=== PATIENT | male | born 1975 | race Caucasian/White ===

== ENCOUNTER 2018-06-13 19:11 | Emergency (ER) | payer SELFPAY ==
[2018-06-13] MEDS ORDERED: Bacitracin Oint 1 GM U/D Packet TOP ONE (19:48)
--- NOTE | 2018-06-13 19:49 | EDM.PDOC ---
ED HPI GENERAL MEDICAL PROBLEM - General Chief Complaint: Upper Extremity Injury/Pain Stated Complaint: HURT ARM Time Seen by Provider: 06/13/18 19:48 Source of Information: Reports: Patient History Limitations: Reports: No Limitations - History of Present Illness INITIAL COMMENTS - FREE TEXT/NARRATIVE: pt arrived with pain and swelling in his rt forearm. pt had a spring come up and hit his rt forearm. Onset: Today Duration: Hour(s): Location: Reports: Upper Extremity, Right Associated Symptoms: Reports: No Other Symptoms - Related Data Allergies Allergy/AdvReac Type Severity Reaction Status Date / Time No Known Allergies Allergy Verified 06/13/18 19:32 Home Meds: Home Meds Lisinopril [Prinivil] 1 tab PO DAILY 01/25/14 [History] Ibuprofen 400 mg PO ASDIRECTED PRN 01/27/14 [History] Past Medical History Cardiovascular History: Reports: Hypertension Social & Family History - Tobacco Use Smoking Status *Q: Current Every Day Smoker Years of Tobacco use: 20 Packs/Tins Daily: 0.5 Review of Systems - Review of Systems Review Of Systems: See Below Constitutional: Reports: No Symptoms Eyes: Reports: No Symptoms Ears: Reports: No Symptoms Nose: Reports: No Symptoms Mouth/Throat: Reports: No Symptoms Respiratory: Reports: No Symptoms Cardiovascular: Reports: No Symptoms GI/Abdominal: Reports: No Symptoms Musculoskeletal: Denies: Other (Pain in the rt forearm.He was hit with a large spring and the forearm developed swelling immediately. ) Skin: Reports: No Symptoms Neurological: Reports: No Symptoms Psychiatric: Reports: No Symptoms ED EXAM, GENERAL - Physical Exam Exam: See Below Free Text/Narrative:: pt hit his rt forearm with a large sping and he has a abrasion at the wrist level. and he developed marked swelling immediately. Exam Limited By: No Limitations General Appearance: Alert, Anxious, Mild Distress Extremities: Other (pain in the rt forearm with swelling. He has a superficial abrasion. ) Neurological: Alert, Oriented, Normal Cognition Course - Vital Signs Last Recorded V/S: Last Vital Signs Temp 36.8 C 06/13/18 19:38 Pulse 89 06/13/18 19:38 Resp 14 06/13/18 19:38 BP 170/99 H 06/13/18 19:38 Pulse Ox 95 06/13/18 19:38 - Orders/Labs/Meds Orders: Active Orders 24 hr Category Date Time Status Vaccines to be Administered [RC] PER UNIT ROUTINE Care 06/13/18 20:03 Active Forearm 2V Rt [CR] Stat Exams 06/13/18 19:47 Taken Meds: Medications Discontinued Medications Generic Name Dose Route Start Last Admin Trade Name Shruti PRN Reason Stop Dose Admin Bacitracin 1 dose 06/13/18 19:48 06/13/18 20:16 Bacitracin Oint 1 Gm TOP 06/13/18 19:49 1 dose ONETIME ONE Administration Diphtheria/Tetanus/Acell Pertussis 0.5 ml 06/13/18 20:03 06/13/18 20:16 Adacel IM 06/13/18 20:04 0.5 ml .ONCE ONE Administration Departure - Departure Time of Disposition: 20:20 Disposition: Home, Self-Care 01 Condition: Fair Clinical Impression: Abrasion forearm, Contusion, forearm - Discharge Information Referrals: Laura Nicolas PA [Primary Care Provider] - Forms: ED Department Discharge Care Plan Goals: rtc if problems, may rturn to work tomorrow, elevate and cool pack area. tylenol and motrin for pain. - My Orders Last 24 Hours: My Active Orders 06/13/18 19:47 Forearm 2V Rt [CR] Stat 06/13/18 20:03 Vaccines to be Administered [RC] PER UNIT ROUTINE - Assessment/Plan Last 24 Hours: My Active Orders 06/13/18 19:47 Forearm 2V Rt [CR] Stat 06/13/18 20:03 Vaccines to be Administered [RC] PER UNIT ROUTINE
[2018-06-13] MEDS ORDERED: Diphtheria,Pertussis(Acell),Tetanus Vaccine 0.5 ML SDV IM ONE (20:03)
--- NOTE | 2018-06-15 08:55 | CR ---
Forearm 2V Rt CLINICAL HISTORY: Trauma FINDINGS: There is no fracture or osseous lesion. IMPRESSION: Negative
== END 2018-06-13 20:37 | disposition home or self-care (01) ==
LOC: JP.ED 19:11
DX: S50.11XA Contusion of right forearm, initial encounter (principal); I10 Essential (primary) hypertension; F17.210 Nicotine dependence, cigarettes, uncomplicated; Z23 Encounter for immunization; Z79.899 Other long term (current) drug therapy; W22.8XXA Striking against or struck by other objects, initial encounter
CPT/HCPCS: 73090-26-RT; 73090-RT; 90471; 90715; 99001; 99283; 99284-25

== ENCOUNTER 2019-06-24 20:30 | Emergency (ER) | payer BC ==
[2019-06-24] MEDS ORDERED: Acetaminophen/HYDROcodone 325-5 MG Tab PO ONE (21:55)
--- NOTE | 2019-06-24 22:00 | EDM.PDOC ---
ED HPI GENERAL MEDICAL PROBLEM - General Chief Complaint: Back Pain or Injury Stated Complaint: LOW BACK PAIN Time Seen by Provider: 06/24/19 21:45 Source of Information: Reports: Patient, RN History Limitations: Reports: No Limitations - History of Present Illness INITIAL COMMENTS - FREE TEXT/NARRATIVE: 44 yo male presents with progressive low back pain over the past several days. Says he has some mild chronic low back pain, but it is worse now due to his work load. 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 Does not recall any acute injury. He has tried rn urgent care, warm baths, and Aleve without relief. No pain down his legs or bowel or bladder dysfunction. Has not been to his primary yet. Says his busy season will be over in another week and then he gets a break. Does not want a note for work. Pain is evenly spread across his low back at the belt line. Says he's been to PT in the past and it didn't help. Onset: Gradual Duration: Day(s):, Getting Worse Location: Reports: Back (low) Quality: Reports: Ache Severity: Moderate Improves with: Reports: Rest Worsens with: Reports: Movement (bending, lifting) Context: Reports: Other (see HPI) Associated Symptoms: Reports: No Other Symptoms Treatments [employer]: Reports: NSAIDS (Aleve last 3 hrs ago.) Lower Mid-Posterior Back Pain Score (Numeric/FACES): 7 - Related Data Allergies Allergy/AdvReac Type Severity Reaction Status Date / Time No Known Allergies Allergy Verified 06/13/18 19:32 Home Meds: Home Meds Lisinopril [Prinivil] 10 mg PO DAILY 01/25/14 [History] Guaifenesin/Pseudoephedrne HCl [Mucus D ER 600-60 mg Tablet] 1 tab PO BID [History] Levofloxacin 500 mg PO DAILY 06/24/19 [History] Naproxen [Naprosyn] 250 mg PO BID 06/24/19 [History] Pantoprazole Sodium 40 mg PO DAILY 06/24/19 [History] Past Medical History HEENT History: Reports: Other (See Below) Other HEENT History: dentures Cardiovascular History: Reports: Hypertension Gastrointestinal History: Reports: Other (See Below) Other Gastrointestinal History: acid reflux Musculoskeletal History: Reports: Back Pain, Chronic, Fracture - Infectious Disease History Infectious Disease History: Reports: Chicken Pox - Past Surgical History HEENT Surgical History: Reports: Oral Surgery Social & Family History - Tobacco Use Smoking Status *Q: Light Tobacco Smoker Years of Tobacco use: 20 Packs/Tins Daily: 0.2 - Caffeine Use Caffeine Use: Reports: Soda - Recreational Drug Use Recreational Drug Use: No ED ROS GENERAL - Review of Systems Review Of Systems: See Below Constitutional: Reports: No Symptoms HEENT: Reports: No Symptoms Respiratory: Reports: No Symptoms Cardiovascular: Reports: No Symptoms GI/Abdominal: Reports: No Symptoms : Reports: No Symptoms Musculoskeletal: Reports: Back Pain Skin: Reports: No Symptoms Neurological: Reports: No Symptoms ED EXAM,LOWER BACK PAIN/INJURY - Physical Exam Exam: See Below Exam Limited By: No Limitations General Appearance: Alert, WD/WN, No Apparent Distress Eye Exam: Bilateral Eye: Normal Inspection Ears: Normal External Exam, Normal Canal, Hearing Grossly Normal Nose: Normal Inspection, No Blood Throat/Mouth: Normal Inspection, Normal Lips, Normal Voice, No Airway Compromise Head: Atraumatic, Normocephalic Neck: Normal Inspection Respiratory/Chest: No Respiratory Distress, No Accessory Muscle Use Cardiovascular: Regular Rate, Rhythm, No Edema Back Exam: Normal Inspection, Other (sacral tenderness and extreme low lumbar tenderness bilaterally. Coughing does not make it worse. ). No: CVA Tenderness (R), CVA Tenderness (L) Extremities: Normal Inspection, Normal Range of Motion, Non-Tender, No Pedal Edema Neurological: Alert, Normal Mood/Affect, CN II-XII Intact, No Motor/Sensory Deficits, Oriented x 3 DTR - Lower Extremities: 1+: Knee (R), Knee (L) Psychiatric: Normal Affect, Normal Mood Skin Exam: Warm, Dry, Intact, Normal Color, No Rash Course - Vital Signs Last Recorded V/S: Last Vital Signs Temp 36.4 C 06/24/19 21:20 Pulse 97 06/24/19 21:20 Resp 16 06/24/19 21:20 BP 128/86 06/24/19 21:20 Pulse Ox 98 06/24/19 21:20 - Orders/Labs/Meds Orders: Active Orders 24 hr Category Date Time Status Acetaminophen/HYDROcodone [[place] 325-5 MG] Med 06/24/19 21:55 Once 1 tab PO ONETIME ONE Departure - Departure Time of Disposition: 22:10 Disposition: Home, Self-Care 01 Condition: Fair Clinical Impression: Acute exacerbation of chronic low back pain - Discharge Information *PRESCRIPTION DRUG MONITORING PROGRAM REVIEWED*: No *COPY OF PRESCRIPTION DRUG MONITORING REPORT IN PATIENT KASSI: No Instructions: Chronic Back Pain, [id number], Back Exercises, [id number] Referrals: Isac Toth MD [Primary Care Provider] - Additional Instructions: Take Flexeril 5 mg every 8 hrs when you need to be alert, and 10 mg at bedtime. Use [place] as directed when you are not at work, use acetaminophen 1000 mg every 6 hrs when at work. You may continue your Aleve up to 2 every 8 hrs. Consider a back brace to be used with lifting or bending. F/U with your provider in the clinic as needed. - My Orders Last 24 Hours: My Active Orders 06/24/19 21:55 Acetaminophen/HYDROcodone [[place] 325-5 MG] 1 tab PO ONETIME ONE - Assessment/Plan Last 24 Hours: My Active Orders 06/24/19 21:55 Acetaminophen/HYDROcodone [[place] 325-5 MG] 1 tab PO ONETIME ONE
== END 2019-06-24 22:15 | disposition home or self-care (01) ==
LOC: JP.ED 20:30
DX: G89.29 Other chronic pain (principal); M54.5 Low back pain; I10 Essential (primary) hypertension; K21.9 Gastro-esophageal reflux disease without esophagitis; F17.210 Nicotine dependence, cigarettes, uncomplicated; Z79.899 Other long term (current) drug therapy
CPT/HCPCS: 99283; A9270-GY

== ENCOUNTER 2019-07-19 06:33 | Day surgery (SDC) | payer BC, OTHER ==
[2019-07-19] MEDS ORDERED: Glycopyrrolate 0.2 MG/ML 2 ML SDV IVPUSH ONE (07:00)
[2019-07-19] MEDS ORDERED: Dextrose 5%-Lactated Ringers 1,000 ML IV SCH (07:00)
[2019-07-19] MEDS ORDERED: Midazolam 1 MG/ML 2 ML SDV ONE (07:26)
[2019-07-19] MEDS ORDERED: Propofol 200 MG/20 ML SDV ONE (07:26)
[2019-07-19] MEDS ORDERED: fentaNYL 100 MCG/2 ML SDV ONE (07:26)
--- NOTE | 2019-07-30 10:50 | OR ---
DATE OF PROCEDURE: 07/19/2019 SURGEON: Fredrick Mobley MD PREOPERATIVE DIAGNOSIS: Upper abdominal pain. POSTOPERATIVE DIAGNOSES: Upper abdominal pain associated with: 1. Small hiatal hernia and active gastroesophageal reflux disease. 2. Moderate gastric bezoar with a large volume of retained gastric bile. 3. Moderate antral gastritis. OPERATIVE PROCEDURE: Esophagogastroduodenoscopy with: 1. Evacuation of gastric bezoar. 2. Biopsies of antrum for CLOtest. 3. Biopsies of esophagogastric junction for histologic evaluation. ANESTHESIA: IV sedation. INDICATION FOR PROCEDURE: This is a 44-year-old male presenting with ongoing upper abdominal discomfort. The patient is presently on a proton pump inhibitor and, despite this, is having some ongoing heartburn as well as epigastric discomfort. Plan is to proceed with upper GI endoscopy with biopsies and/or dilation as indicated. Potential risks including bleeding and perforation were discussed, and the patient wishes to proceed. DETAILS OF PROCEDURE: The patient was taken to the operating room and placed in the left lateral decubitus position. IV sedation was administered, after which the upper GI endoscope was passed orally through the length of the esophagus, into the stomach with retroflexion view of the fundus, and thereafter through the pyloric channel into the junction of the third and fourth portions of the duodenum. Findings included some mild redness of the hypopharynx and larynx. The upper esophageal sphincter and esophageal body were unremarkable. At the EG junction, the patient was noted to have a small hiatal hernia, but quite active gastroesophageal reflux disease. There was no stricturing or gross evidence of neoplasia. Within the stomach, there was a large amount of retained bilious material and somewhat smaller volume of bezoar containing some old undigested food which appeared predominantly vegetable in nature. This was associated with some redness in the antrum. The pyloric channel and portions of the duodenum examined were unremarkable. At this point, biopsies were taken from the esophagogastric junction and sent for histologic evaluation. Biopsies were taken from the antrum and sent for CLOtest. Minimal bleeding at the biopsy sites was seen. The fluid was then evacuated from the stomach as much as possible and the bezoar was then manipulated gradually through the pylorus, removing virtually all of the bezoar-type material. The patient was taken to the recovery room in satisfactory condition. The patient will be started on Zithromax 125 mg a day to try to augment gastric emptying. Continue on the proton pump inhibitor. The patient is also noted to have new onset of a right bundle-branch block, which may be indicative of some underlying coronary artery disease and will be set up to see Lo Todd PA-C, for followup of that. He was also noted to have quite severe sleep apnea with some sedation, and he and his were instructed they quite urgently need to get his CPAP machine working. Apparently there are some broken parts at this point that need to be replaced. We will see the patient back on 08/11/19 for followup. If the patient continues to have significant upper GI symptomatology, he may be a candidate for a partial gastrectomy, Alejandro-en-Y gastric bypass- type procedure, given his BMI of 37 with ongoing sleep apnea and the poor gastric emptying. Fredrick Mobley MD /[id number]
== END 2019-07-19 09:45 | disposition home or self-care (01) ==
LOC: JP.SDS 06:33
PROVIDERS: ATTEND Surgery
DX: K21.9 Gastro-esophageal reflux disease without esophagitis (principal); K44.9 Diaphragmatic hernia without obstruction or gangrene; T18.2XXA Foreign body in stomach, initial encounter; K29.60 Other gastritis without bleeding; I10 Essential (primary) hypertension; F17.290 Nicotine dependence, other tobacco product, uncomplicated; E66.9 Obesity, unspecified; Z68.35 Body mass index [BMI] 35.0-35.9, adult
CPT/HCPCS: 87081; 88305; 93005; J2250; J2704; J3010; J3490; J7042

== ENCOUNTER 2019-09-16 08:59 | Inpatient (IN) | payer BC ==
[2019-09-16] MEDS ORDERED: Acetaminophen 500 MG Tab PO ONE (09:15)
[2019-09-16] MEDS ORDERED: Gabapentin 300 MG Cap PO ONE (09:15)
[2019-09-16] MEDS ORDERED: Celecoxib 200 MG Cap PO ONE (09:15)
[2019-09-16] MEDS ORDERED: Scopolamine 1.5 MG Transdermal Patch TOP SCH (09:15)
[2019-09-16] MEDS ORDERED: cefOXitin 2 GM Vial ONE (09:58)
[2019-09-16] MEDS ORDERED: cefOXitin 2 GM in Sodium Chloride 0.9% 50 ML IV ONE (10:30)
[2019-09-16] MEDS: Dextrose 5%-Lactated Ringers 1,000 ML IV SCH ×2 (10:31→16:05)
[2019-09-16] MEDS ORDERED: fentaNYL 250 MCG/5 ML SDV ONE (10:35)
[2019-09-16] MEDS ORDERED: Propofol 200 MG/20 ML SDV ONE (10:36)
[2019-09-16] MEDS ORDERED: Glycopyrrolate 0.2 MG/ML 5 ML MDV ONE (10:36)
[2019-09-16] MEDS ORDERED: Neostigmine Methylsulfate 1 MG/ML 5 ML Syringe ONE (10:36)
[2019-09-16] MEDS ORDERED: Rocuronium 50 MG/5 ML Vial ONE (10:36)
[2019-09-16] MEDS ORDERED: Dexamethasone 4 MG/ML SDV ONE (10:36)
[2019-09-16] MEDS ORDERED: Succinylcholine 200 MG/10 ML MDV ONE (10:36)
[2019-09-16] MEDS ORDERED: Ondansetron 4 MG/2 ML SDV ONE (10:36)
[2019-09-16] MEDS ORDERED: Ketamine 500 MG/5 ML MDV IV SCH (10:45)
[2019-09-16] MEDS ORDERED: Lidocaine 2% 100 MG/5 ML Syringe IVPUSH SCH (10:45)
[2019-09-16] MEDS ORDERED: Lidocaine 0.4%/D5W 2 GM/500 ML BAG IV SCH (10:45)
[2019-09-16] MEDS ORDERED: Ketamine 50 MG in Sodium Chloride 0.9% 49.5 ML IV SCH (10:45)
[2019-09-16] MEDS ORDERED: Lactated Ringers 1,000 ML ONE (11:52)
[2019-09-16] MEDS ORDERED: Midazolam 1 MG/ML 2 ML SDV ONE (12:08)
[2019-09-16] MEDS ORDERED: Phenylephrine 1% 10 MG/ML SDV ONE (13:31)
[2019-09-16] MEDS ORDERED: Sodium Chloride 0.9% 10 ML ONE (13:32)
[2019-09-16] MEDS ORDERED: Atropine 0.4 MG/ML SDV ONE (13:35)
[2019-09-16] MEDS ORDERED: ePHEDrine 50 MG/ML SDV ONE (15:12)
[2019-09-16] MEDS ORDERED: Naloxone 0.4 MG/ML SDV ONE (15:49)
[2019-09-16] MEDS ORDERED: HYDROmorphone 1 MG/ML Syringe IV PRN (16:37)
[2019-09-16] MEDS ORDERED: HYDROmorphone 0.5 MG/0.5 ML Syringe IVPUSH PRN (16:37)
[2019-09-16] MEDS ORDERED: hydrOXYzine HCL 100 MG/2 ML SDV IM PRN (16:37)
[2019-09-16] MEDS ORDERED: Ondansetron 4 MG/2 ML SDV IVPUSH PRN (16:37)
[2019-09-16] MEDS ORDERED: diphenhydrAMINE 50 MG/ML SDV IVPUSH PRN (16:37)
[2019-09-16] MEDS ORDERED: Metoclopramide 10 MG/2 ML SDV IVPUSH PRN (16:37)
[2019-09-16] MEDS ORDERED: Labetalol 20 MG/4 ML Syringe IVPUSH PRN (16:37)
[2019-09-16] MEDS ORDERED: Pantoprazole 40 MG Vial IVPUSH SCH (18:00)
[2019-09-16] MEDS ORDERED: MVI, Adult with Vitamin K 10 ML, Thiamine 200 MG, Chromium/Copper/Mang/Selen/Zn 1 ML in... IV SCH ×4 (18:00)
[2019-09-16] MEDS: cefOXitin 2 GM in Sodium Chloride 0.9% 50 ML IV SCH ×2 (18:08→23:35)
[2019-09-16] MEDS: Heparin Sodium 5,000 Units/ML Vial SUBCUT SCH (19:27)
[2019-09-16] MEDS: Gabapentin 250 MG/5 ML Solution ML 470 ML Bottle PO SCH (20:43)
[2019-09-16] MEDS: Acetaminophen Soln 650 MG/20.3 ML UD Cup PO SCH (22:08)
[2019-09-17] MEDS: Dextrose 5%-Lactated Ringers 1,000 ML IV SCH ×2 (01:01→07:18)
[2019-09-17] MEDS ORDERED: Iopamidol 612 MG/ML 50 ML SDV PO STA (01:04)
--- NOTE | 2019-09-17 02:48 | CRLCR ---
INDICATION: Status post gastrectomy and Alejandro-en-Y COMPARISON: None available. FINDINGS: Limited upper GI examination is performed with 2 AP views. The initial view shows ingestion of oral contrast. The contrast is largely collected in the gastric remnant, with a tapered stricture in the area of the Alejandro-en-Y anastomosis. This is consistent with continued postoperative edema. There is no sign of extravasation of contrast. The image obtained 13 minutes later shows persistent contrast in the gastric pouch remnant. There is appropriate passage of contrast into the mid and distal small bowel. There is no sign of any extravasation of contrast. There is satisfactory positioning of a Coy-Griffin drain in the left upper quadrant of the abdomen. IMPRESSION: Postoperative edema resulting in moderate stricture of the Alejandro-en-Y anastomosis, with prominent stasis of oral contrast in the gastric pouch remnant. No sign of extravasation of contrast at the anastomosis. No sign of small bowel obstruction. Dictated by Adis Santiago MD @ Sep 17 2019 2:44AM Signed by Dr. Adis Santiago @ Sep 17 2019 2:46AM
[2019-09-17] MEDS: Acetaminophen Soln 650 MG/20.3 ML UD Cup PO SCH ×4 (03:05→21:47)
[2019-09-17] MEDS: cefOXitin 2 GM in Sodium Chloride 0.9% 50 ML IV SCH ×3 (05:33→18:41)
--- NOTE | 2019-09-17 07:11 | CRLCR ---
Indication: Status post Alejandro-en-Y gastric bypass Technique: Abdomen 1 view Comparison: September 17, 2019 Findings/Impression: Bowel: Residual oral contrast is in the distal small bowel. Bowel pattern appears normal. No signs of obstruction or contrast extravasation. Soft tissues: No sign of free air. No sign of soft tissue mass. No suspicious calcifications. Bones: Drainage catheter remains in the left upper quadrant. Dictated by Adis Taylor MD @ Sep 17 2019 6:57AM Signed by Dr. Adis Taylor @ Sep 17 2019 7:10AM
[2019-09-17] MEDS: Celecoxib 200 MG Cap PO SCH (07:19)
[2019-09-17] MEDS: Heparin Sodium 5,000 Units/ML Vial SUBCUT SCH ×2 (07:19→20:05)
[2019-09-17] MEDS ORDERED: Ondansetron 4 MG Tab.DIS PO PRN (07:44)
[2019-09-17] MEDS ORDERED: Dextrose 5%-Lactated Ringers 1,000 ML IV SCH (07:45)
[2019-09-17] MEDS: Gabapentin 250 MG/5 ML Solution ML 470 ML Bottle PO SCH ×3 (08:34→21:47)
[2019-09-17] MEDS: Lisinopril 10 MG Tab PO SCH (08:35)
[2019-09-17] MEDS ORDERED: Lisinopril 10 MG Tab PO SCH (09:00)
[2019-09-17] MEDS ORDERED: Loratadine 10 MG Tab.DIS PO SCH (09:00)
[2019-09-17] MEDS ORDERED: buPROPion 150 MG Tab.SR PO SCH (09:00)
[2019-09-17] MEDS: SCOPOLAMINE PATCH CHECK TOP SCH (12:45)
--- NOTE | 2019-09-17 16:15 | PN ---
DATE OF SERVICE: 09/17/2019 SUBJECTIVE: Ilir is postoperative day 1. He had a proximal partial gastrectomy with Alejandro-en-Y gastrojejunostomy. His upper GI was normal. This morning, his pain is controlled. He has been up, ambulating several times. Vital signs have been stable. Oral intake on a step 1 diet was 1440, urine output was 3250, and JOSEPH drain put out 85 mL of a light pink drainage. He has no questions or concerns. REVIEW OF SYSTEMS: Remainder of review of systems negative for any pertinent positives and negatives. OBJECTIVE: GENERAL: Ilir Everett is a 44-year-old male, alert, orientated, sitting up in the chair. VITAL SIGNS: TPR 99, 102, 18. Blood pressure 152/82. HEENT: Negative. NECK: Supple. HEART: Regular rate and rhythm. LUNGS: Clear. ABDOMEN: Dressing is dry and intact. Abdominal binder is on. EXTREMITIES: Without peripheral edema. ASSESSMENT: Diagnostic laparoscopy with: 1. Proximal partial gastrectomy with Alejandro-en-Y gastrojejunostomy. 2. Repair of paraesophageal diaphragmatic hernia. 3. Small bowel resection for gastroparesis refractory to medical management, paraesophageal hernia, foreshortened small bowel mesentery requiring small bowel resection. Date of surgery, 09/16/2019, Fredrick Mobley MD. PLAN: 1. Decrease IV to 100 mL per hour. 2. Step 2 gastric bypass diet with no cereal. 3. Discontinue cardiac monitoring. 4. Dressing off, may shower. 5. Communication order to drink 3 med cups every 20 minutes or 3 per hour. 6. Zofran ODT 4 mg every 4 hours p.r.n. nausea, bupropion 150 mg p.o. b.i.d., Prinivil 10 mg p.o. daily. 7. Good pulmonary toilet. 8. We will evaluate p.r.n. or in a.m. Aubree Ferris PA-C /[id number]
[2019-09-17] MEDS ORDERED: Pantoprazole 40 MG Delayed-Release Granules 1 Packet PO SCH (16:30)
[2019-09-18] MEDS: Acetaminophen Soln 650 MG/20.3 ML UD Cup PO SCH (03:50)
[2019-09-18] MEDS: SCOPOLAMINE PATCH CHECK TOP SCH (08:46)
[2019-09-18] MEDS: Celecoxib 200 MG Cap PO SCH (08:46)
[2019-09-18] MEDS: Heparin Sodium 5,000 Units/ML Vial SUBCUT SCH (08:46)
[2019-09-18] MEDS: Lisinopril 10 MG Tab PO SCH (08:47)
[2019-09-18] MEDS: Gabapentin 250 MG/5 ML Solution ML 470 ML Bottle PO SCH (08:52)
[2019-09-18] MEDS ORDERED: Cyanocobalamin (Vitamin B12) 1,000 MCG/ML SDV IM ONE (09:00)
--- NOTE | 2019-09-20 10:39 | DISCH ---
FINAL DIAGNOSES: 1. Gastroparesis refractory to medical management. 2. Paraesophageal diaphragmatic hernia. 3. Foreshortening of small bowel mesentery requiring small-bowel resection for adequate formation of mobile Alejandro limb. ADDITIONAL DIAGNOSES: 1. Gastroesophageal reflux disease. 2. History of hypertension. 3. History obstructive sleep apnea. OPERATIVE PROCEDURE: Done on 09/16/2019, diagnostic laparoscopy with, 1. Proximal partial gastrectomy with Alejandro-en-Y gastrojejunostomy. 2. Repair of paraesophageal diaphragmatic hernia. 3. Small bowel resection. SUMMARY: This is a 44-year-old presenting with severe gastroesophageal reflux disease. On workup, this appeared to be related to some degree of hiatal hernia, but he also was noted to have gastroparesis which has become refractory to medical management, and after preoperative evaluation and discussion, he wished to proceed with a proximal partial gastrectomy with Alejandro-en-Y gastrojejunostomy. This was done on the date of procedure. The small bowel was unusually immobile likely related to some degree of obesity and this required a small-bowel resection for adequate mobility of the Alejandro limb. He also had repair of the paraesophageal diaphragmatic hernia. Postoperatively, he has done very well. He was noted to have fairly dilated esophagus at the time of upper GI evaluation and passed into the GI tract satisfactorily and he did tolerate step-2 diet well yesterday. He will be discharged home with Celebrex and Tylenol for pain and we will have him continue the Protonix that he has been on until he is off Celebrex and begin step-2 diet until the first appointment, which will be with Aubree Ferris at [facility] on 09/27/2019.
--- NOTE | 2019-09-23 13:35 | OR ---
DATE OF PROCEDURE: 09/16/2019 SURGEON: Fredrick Mobley MD PREOPERATIVE DIAGNOSIS: Gastroparesis refractory to medical management. POSTOPERATIVE DIAGNOSES: 1. Gastroparesis refractory to medical management. 2. Paraesophageal diaphragmatic hernia. 3. Foreshortened small bowel mesentery requiring small bowel resection for adequate mobility of jejunojejunostomy. OPERATIVE PROCEDURE: Diagnostic laparoscopy with: 1. Proximal partial gastrectomy with Alejandro-en-Y gastrojejunostomy (97046). 2. Repair of paraesophageal diaphragmatic hernia (59716). 3. Small bowel resection (16028). ANESTHESIA: General. INDICATION FOR PROCEDURE: This is a 44-year-old male presenting with ongoing epigastric discomfort and bloating. Upper endoscopies have confirmed gastroparesis with large amount of retained food contents despite anti-bezoar diet and appropriate medications. Given this, he is to undergo a proximal partial gastrectomy with Alejandro-en-Y reconstruction which should alleviate his problems with gastroparesis. Potential risks including the bleeding, infection, injury to underlying viscera, problems with leaks from various GI tract closures, and/or bowel obstruction over time were all reviewed along with the remote possibility of cardiopulmonary, septic, or hemorrhagic complications leading to , and the patient wishes to proceed. DETAILS OF PROCEDURE: The patient was taken to the operating room and placed in a supine position. After general endotracheal anesthesia was induced, he was converted to a lithotomy position and a Junior catheter inserted. The abdomen was then prepped and draped. At 15 cm inferior and 5 cm left of the xiphoid process, a transverse incision was made and the peritoneal cavity entered under direct vision with an Optiview trocar, inflated to 15 mmHg pressure with CO2. Laparoscope was then reinserted. No underlying trocar insertion site injuries were seen. Following this, bilateral transversus abdominis plane blocks were placed and 5 additional trocars were placed across the upper and mid abdomen and general exploration was undertaken. Initially, liver was retracted anteriorly. The patient was noted to have a moderate-sized paraesophageal diaphragmatic hernia. This contained some perigastric fat along with some gastric fundus prolapsing adjacent to the course of the esophagus. This was reduced and the peritoneum overlying was incised and reflected downward. Anterior repair of the diaphragmatic hernia was then accomplished with 0 Ethibond sutures, reinforced with PTFE pledgets. A portion of the proximal stomach was then resected dividing the stomach with a small rim of the remaining stomach just below the esophagogastric junction. The small rim of the stomach was then excised. This was all done with the black and purple fernando and the proximal stomach specimen then sent for pathologic review. At this point, the anvil of a 25 mm EEA stapler passed orally through the mouth, taken out through a small opening near the proximally divided stomach, where it was pulled down for subsequent anastomosis. Attention was then taken to the small bowel. The small bowel was traced out 40 cm distal to the ligament of Treitz where it was divided transversely with a CRISELDA stapler. The small bowel was then traced out additional 150 cm. At that point, it became evident that the small bowel mesentery was quite foreshortened due to obesity and possibly some other pathology, and a portion of the biliopancreatic limb was then resected roughly about 10 cm which allowed more adequate mobility of the jejunojejunostomy and subsequently the retracted bowel was divided from the mesentery with Harmonic scalpel and then this was stabilized with fernando. Then, 150 cm distal to that point, the enteroenterostomy was accomplished with internal firing of the Endo-CRISELDA 60 mm stapler, however, the opening was then closed transversely with same stapler and the angle of anastomosed mesenteric defect approximated with some 0 Ethibond stitch along with 4 mL of fibrin sealant. The divided end of Alejandro limb was brought up to the site I had divided the stomach proximally. This needed to carry a fairly wide lateral course of the Alejandro limb over the thickened mesentery, but it did come up nicely proximal to the stomach, divided, and the Alejandro limb was then opened and main body of EEA stapler was passed 3 cm into the Alejandro limb, brought up to the anvil and united with it, thus creating the gastrojejunostomy. Upon removal of the stapler, double donuts of mucosa were noted within it. The small bowel was closed off with a vascular staple line. Gastrojejunostomy was reinforced with some 3-0 Vicryl seromuscular stitch along with 4 mL of fibrin sealant. A leak test was accomplished with injection of 120 mL of air in the gastric pouch while it was submerged with cefoxitin-containing saline solution. No leaks were identified. Two Coy-Griffin drains were then placed adjacent to the gastrojejunostomy, taken out through subcostal trocar sites. No further problems noted. Trocars removed and peritoneal cavity deflated. Incision was closed with some 4-0 Vicryl skin stitch, and the patient was taken to the recovery room in satisfactory condition. There were no evident complications. Fredrick Mobley MD /[id number]
== END 2019-09-18 10:15 | disposition home or self-care (01) | DRG 220 ==
LOC: JP.SDS 08:59 → JP.MS 15:45 → UNDOADMIN 15:45
PROVIDERS: ADMIT Surgery; ATTEND Surgery
PROC: 0BQT4ZZ Repair Diaphragm, Percutaneous Endoscopic Approach (ICD-10-PCS; principal; 2019-09-16)
PROC: 0D164ZA Bypass Stomach to Jejunum, Percutaneous Endoscopic Approach (ICD-10-PCS; 2019-09-16)
PROC: 0DB64ZZ Excision of Stomach, Percutaneous Endoscopic Approach (ICD-10-PCS; 2019-09-16)
PROC: 0DB84ZZ Excision of Small Intestine, Percutaneous Endoscopic Approach (ICD-10-PCS; 2019-09-16)
DX: K21.9 Gastro-esophageal reflux disease without esophagitis (principal); I10 Essential (primary) hypertension; G47.33 Obstructive sleep apnea (adult) (pediatric); K44.9 Diaphragmatic hernia without obstruction or gangrene; K31.84 Gastroparesis; E66.9 Obesity, unspecified; J30.9 Allergic rhinitis, unspecified; Z79.899 Other long term (current) drug therapy; Z68.33 Body mass index [BMI] 33.0-33.9, adult
CPT/HCPCS: 36415; 74018; 74240; 80053; 82962; 83735; 83880; 84100; 85025; 86850; 86900; 86901; 88307; A9270-GY; C9113; J0171; J0330; J0461; J0694; J1100; J1644; J2001; J2250; J2310; J2370; J2405; J2704; J2710; J2795; J3010; J3411; J3420; J3490; J7050; J7120; J7121; Q9967

== ENCOUNTER 2021-02-15 08:25 | Day surgery (SDC) | payer BC ==
[2021-02-15] MEDS ORDERED: Glycopyrrolate 0.2 MG/ML 2 ML SDV IVPUSH ONE (08:44)
[2021-02-15] MEDS ORDERED: Dextrose 5%-Lactated Ringers 1,000 ML IV SCH (08:45)
[2021-02-15] MEDS ORDERED: fentaNYL 100 MCG/2 ML SDV ONE (10:18)
[2021-02-15] MEDS ORDERED: Midazolam 1 MG/ML 2 ML SDV ONE (10:19)
[2021-02-15] MEDS ORDERED: Propofol 200 MG/20 ML SDV ONE (10:19)
[2021-02-15] MEDS ORDERED: Dexamethasone 4 MG/ML SDV ONE (10:59)
--- NOTE | 2021-02-25 11:12 | OR ---
DATE OF PROCEDURE: 02/15/2021 SURGEON: Fredrick Mobley MD PREOPERATIVE DIAGNOSES: Retained solid food within the distal esophagus and recent endoscopic upper respiratory procedure. POSTOPERATIVE DIAGNOSES: 1. Retained solid food within the esophagus and gastric pouch along with a large amount of food pooling within the elongated Alejandro limb blind end. 2. Possible stricture versus spasm of distal esophagus. OPERATIVE PROCEDURE: Upper gastrointestinal endoscopy with: 1. A. Dilation of esophagus (64752). 2. B. Removal of foreign body (ingested food) from distal esophagus and gastric pouch. ANESTHESIA: IV sedation. INDICATION FOR PROCEDURE: A 45-year-old status post a high partial gastrectomy with Alejandro-en- Y reconstruction for gastroparesis which was refractory to medical management. This was done in August 2019. Had a recent endoscopic procedure for treatment of some upper airway problems by Dr. Cabral. The patient was noted to have retained food within the esophagus and was referred at this time for further evaluation. Potential risks including bleeding and perforation, possible aspiration of the esophageal contents were reviewed, and the patient wishes to proceed. DETAILS OF PROCEDURE: The patient was taken to the operating room, placed in a left lateral decubitus position. IV sedation was administered after which the upper GI endoscope was passed orally through the length of esophagus into the esophagogastric junction, gastric pouch, and from there through the gastrojejunostomy roughly 20 cm into the Alejandro limb. Findings included at this point a normal hypopharynx, larynx, and upper esophageal sphincter. Esophageal body was likewise unremarkable. There was some retained solid food within the mid and distal esophagus as well as the gastric pouch. There was no stricturing at the gastrojejunostomy. There was some sense of either spasm or some mild stricturing within the distal esophagus somewhat above the esophagogastric junction. The most striking finding was a large amount of retained food within the divided blind end or candy cane end of the Alejandro limb. This likely was intermittently coming up into the esophagus causing some of the patient's symptoms and also put him at some risk for aspiration of those contents with subsequent pulmonary complications. There was only a scant amount of food within the remaining course of the Alejandro limb, which likely became present in that location due to the manipulation associated with the upper endoscopy, i.e., that end of the Alejandro limb. After satisfactory motility, the retained food, which was in the distal esophagus and pouch was then moved downward into the Alejandro limb to eliminate the chances of aspiration of that during the patient's subsequent recovery phase. With possible mild stricture or spasm of distal esophagus, a guidewire was then passed into the main course of the Alejandro limb. Over this, a 54-Italian Savary dilator was placed. This was held in position for 1 minute after which the dilator and wire were removed, and scope was then replaced. At that point, no further problems were noted, and the procedure was concluded. The patient was taken to the recovery room in satisfactory condition. Plan will be to see the patient back in a week. He will probably benefit from a laparoscopic revision of the Alejandro limb such that all or most of the candy cane blind end would be resected more or less flush with the gastrojejunostomy, which would direct all of the ingested food into the main Alejandro limb, which at this point appears to have reasonably good motility. We will see the patient back next week to discuss those plans. Fredrick Mobley MD /[id number]
== END 2021-02-15 12:25 | disposition home or self-care (01) ==
LOC: JP.SDS 08:25
PROVIDERS: ATTEND Surgery
DX: T18.128A Food in esophagus causing other injury, initial encounter (principal); I10 Essential (primary) hypertension; E66.9 Obesity, unspecified; K21.9 Gastro-esophageal reflux disease without esophagitis; G47.33 Obstructive sleep apnea (adult) (pediatric); Z98.84 Bariatric surgery status
CPT/HCPCS: 43247; 43249; J1100; J2250; J2704; J3010; J3490

== ENCOUNTER 2021-03-22 06:48 | Inpatient (IN) | payer BC ==
[~2021-03-22 06:48] MED LIST: Acetaminophen 500 MG Tab PO ONE; Bupivacaine 0.5%/EPINEPHrine 1:200,000 50 ML MDV ONE; Celecoxib 200 MG Cap PO ONE; Meropenem 500 MG SDV ONE; Scopolamine 1.5 MG Transdermal Patch TOP SCH
[2021-03-22] MEDS ORDERED: fentaNYL 250 MCG/5 ML SDV ONE (06:49)
[2021-03-22] MEDS ORDERED: Propofol 200 MG/20 ML SDV ONE (06:49)
[2021-03-22] MEDS ORDERED: Succinylcholine 200 MG/10 ML MDV ONE (06:49)
[2021-03-22] MEDS ORDERED: Rocuronium 50 MG/5 ML Vial ONE (06:49)
[2021-03-22] MEDS ORDERED: Ondansetron 4 MG/2 ML SDV ONE (06:49)
[2021-03-22] MEDS ORDERED: Neostigmine Methylsulfate 1 MG/ML 5 ML Syringe ONE (06:49)
[2021-03-22] MEDS ORDERED: Dexamethasone 4 MG/ML SDV ONE (06:49)
[2021-03-22] MEDS ORDERED: Glycopyrrolate 0.2 MG/ML 5 ML MDV ONE (06:49)
[2021-03-22] MEDS ORDERED: Dextrose 5%-Lactated Ringers 1,000 ML IV SCH (07:00)
[2021-03-22] MEDS ORDERED: cefOXitin 2 GM Vial ONE (07:32)
[2021-03-22] MEDS: cefOXitin 2 GM in Sodium Chloride 0.9% 50 ML IV ONE ×2 (08:25→10:54)
[2021-03-22] MEDS ORDERED: Ketamine 500 MG/5 ML MDV IV SCH (08:30)
[2021-03-22] MEDS ORDERED: Ketamine 50 MG in Sodium Chloride 0.9% 49.5 ML IV SCH (08:30)
[2021-03-22] MEDS ORDERED: ePHEDrine 50 MG/ML SDV ONE (09:19)
[2021-03-22] MEDS ORDERED: Sodium Chloride 0.9% 10 ML ONE (09:19)
[2021-03-22] MEDS ORDERED: fentaNYL 100 MCG/2 ML SDV ONE (09:38)
[2021-03-22] MEDS ORDERED: Lactated Ringers 1,000 ML ONE (09:41)
[2021-03-22] MEDS ORDERED: Sugammadex Sodium 200 MG/2 ML VIAL ONE (09:55)
[2021-03-22] MEDS ORDERED: Cyclobenzaprine 10 MG Tab PO PRN (11:22)
[2021-03-22] MEDS ORDERED: diphenhydrAMINE 50 MG/ML SDV IVPUSH PRN (12:00)
[2021-03-22] MEDS ORDERED: HYDROmorphone 0.5 MG/0.5 ML Syringe IVPUSH PRN (12:00)
[2021-03-22] MEDS ORDERED: HYDROmorphone 1 MG/ML Syringe IV PRN (12:00)
[2021-03-22] MEDS ORDERED: Acetaminophen 500 MG Tab PO PRN (12:00)
[2021-03-22] MEDS ORDERED: traMADol 50 MG Tab PO PRN (12:00)
[2021-03-22] MEDS ORDERED: Metoclopramide 10 MG/2 ML SDV IVPUSH PRN (12:00)
[2021-03-22] MEDS ORDERED: Labetalol 20 MG/4 ML Syringe IVPUSH PRN (12:00)
[2021-03-22] MEDS ORDERED: hydrOXYzine HCL 100 MG/2 ML SDV IM PRN (12:00)
[2021-03-22] MEDS ORDERED: oxyCODONE 5 MG Tab PO PRN (12:00)
[2021-03-22] MEDS ORDERED: Ondansetron 4 MG/2 ML SDV IVPUSH PRN (12:00)
[2021-03-22] MEDS ORDERED: Pantoprazole 40 MG Vial IVPUSH SCH (14:00)
[2021-03-22] MEDS: Dextrose 5%-Lactated Ringers 1,000 ML IV SCH ×2 (14:25→22:12)
[2021-03-22] MEDS: Acetaminophen 500 MG Tab PO SCH ×2 (14:27→22:13)
[2021-03-22] MEDS: MVI, Adult with Vitamin K 10 ML, Thiamine 200 MG, Zinc/Copper/Manganese/Selenium 1 ML i... IV SCH ×8 (14:30→17:19)
[2021-03-22] MEDS: cefOXitin 2 GM in Sodium Chloride 0.9% 50 ML IV SCH ×2 (14:33→20:10)
[2021-03-22] MEDS: Heparin Sodium 5,000 Units/ML Vial SUBCUT SCH (18:03)
[2021-03-23] MEDS: cefOXitin 2 GM in Sodium Chloride 0.9% 50 ML IV SCH ×2 (02:30→07:41)
[2021-03-23] MEDS ORDERED: Iopamidol 612 MG/ML 50 ML SDV PO ONE (03:19)
[2021-03-23] MEDS: Dextrose 5%-Lactated Ringers 1,000 ML IV SCH (05:26)
[2021-03-23] MEDS: Heparin Sodium 5,000 Units/ML Vial SUBCUT SCH (05:26)
[2021-03-23] MEDS: Acetaminophen 500 MG Tab PO SCH (05:27)
[2021-03-23] MEDS ORDERED: Ondansetron 4 MG Tab.DIS PO PRN (07:16)
[2021-03-23] MEDS ORDERED: Celecoxib 200 MG Cap PO SCH (09:00)
[2021-03-23] MEDS ORDERED: SCOPOLAMINE PATCH CHECK TOP SCH (09:00)
--- NOTE | 2021-03-23 10:05 | DISCH ---
DATE OF SERVICE: 03/23/2021 ADMISSION DIAGNOSES: 1. Status post partial gastrectomy with large amount of retaining indigested food. 2. Gastroesophageal reflux disease. 3. Hypertension. 4. Obstructive sleep apnea. 5. Chronic low back pain. DISCHARGE DIAGNOSIS: Diagnostic laparoscopy with small bowel resection. POSTOPERATIVE DIAGNOSIS: Elongated (candy-cane) limb at the gastrojejunostomy with large amounts of retaining ingested food. DATE OF PROCEDURE: 03/22/2021. SURGEON: Fredrick Mobley MD. HISTORY: Ilir Everett is a 45-year-old male with a history of partial gastrectomy for gastroparesis. He was developing regurgitation of food along with acid reflux. After preoperative evaluation and discussion of possible risks and possible complications, he wished to proceed with surgical procedure. HOSPITAL COURSE: Ilir had his surgery on 03/22/2021. He had no operative complications. On postoperative day #1, vital signs were stable. Oral intake adequate. Activity good. Pain was controlled with Tylenol. He was able to be discharged to home. PHYSICAL EXAMINATION: GENERAL: Ilir Everett is a pleasant 45-year-old male. Height is 5 feet 11 inches, weight is 186 pounds. VITAL SIGNS: TPR is, 96.8, 48, 16, and blood pressure 140/81. HEENT: Negative. NECK: Supple. HEART: Regular rate and rhythm. LUNGS: Clear. ABDOMEN: Dressing is dry and intact. Abdominal binder is on. EXTREMITIES: Without peripheral edema. DISPOSITION: Discharged to home. CONDITION: Stable and improving. FOLLOWUP: Appointment with Aubree Ferris PA-C, on 04/03/2021 at 10:15 a.m. HOME MEDICATION: 1. Tylenol 1000 mg, 500 mg take two q.8 hours, scheduled for pain. 2. Celebrex 200 mg b.i.d. as scheduled, #28. He is to stop his vitamins and supplements until after his first postop appointment. DIET: Step 2 gastric bypass diet with no cereal for 2 weeks until 04/06/2021. ACTIVITY: No lifting greater than 10 pounds for 2 weeks. OTHER ACTIVITY: Walk at least 6 times daily inside your home. Driving: Do not drive for 1 week. Shower/bathing: May shower. Wound incision care: Keep operative site clean and dry. Wear abdominal binder for 2 weeks and then as tolerated. Notify provider if any fever, increased pain, swelling, redness, drainage, nausea, or vomiting. Special instructions: Use incentive spirometer 10 times every hour while awake for 1 week. Aubree Ferris PA-C /[id number]
--- NOTE | 2021-03-23 10:21 | CR ---
[facility] HISTORY: Postbariatric surgery FINDINGS: Patient swallowed water-soluble contrast. Upright views of the abdomen show retention of contrast in the dilated distal third of the esophagus. There is narrowing at the gastroesophageal junction. The 15 minute delayed film showed contrast filling the proximal jejunum. There is no evidence of extravasation IMPRESSION: Status post bariatric surgery There is some holdup at the gastroesophageal junction with some dilatation of the distal esophagus. This may be due to some spasm or swelling at the GE junction. No extravasation
[2021-03-23] MEDS ORDERED: Pantoprazole 40 MG Tab.CR PO SCH (11:30)
[2021-03-24] MEDS ORDERED: Cyanocobalamin (Vitamin B12) 1,000 MCG/ML SDV IM ONE (09:00)
--- NOTE | 2021-04-02 12:48 | OR ---
DATE OF PROCEDURE: 03/22/2021 SURGEON: Fredrick Mobley MD PREOPERATIVE DIAGNOSIS: Elongated "candy cane" limb at gastrojejunostomy with a large amount of ingested food retention. POSTOPERATIVE DIAGNOSIS: Elongated "candy cane" limb at gastrojejunostomy with a large amount of ingested food retention. PROCEDURE PERFORMED: Diagnostic laparoscopy with resection of candy cane limb of small bowel at gastrojejunostomy (82061). ANESTHESIA: General. TERRAZZO WORKER: Aubree Ferris PA-C INDICATIONS FOR PROCEDURE: The patient has history of impaired GI tract motility requiring a high-pressure gastrectomy with Alejandro-en-Y reconstruction due to severe gastroparesis which had been refractory to medical management and associated with significant amount of problems with aspiration of ingested contents and severe reflux symptoms. In general, he has done well from that procedure, but has noted at times bringing up some otherwise undigested food. At a recent ENT procedure, Dr. Cabral noted some food within the esophagus, and the patient is referred back for further evaluation. At the time of recent endoscopy, it was confirmed that the patient did have some retained undigested food within the esophagus. This appeared to be pooling within the now somewhat elongated blind end of the Alejandro limb. The gastrojejunostomy itself leading to the main course of the Alejandro limb was unobstructed, and there appeared to be no signs of any obstruction as the scope was passed roughly 20 to 30 cm further distal in that Alejandro limb. It would appear we are dealing with a situation of a somewhat elongated candy cane limb along with some impaired GI tract motility. He has longstanding diabetes, and by removing that blind end, hopefully, the problem of the retained food in that vicinity would be limited or nearly eliminated. Potential risks of the procedure including bleeding, infection, leaks from the GI tract closures, possibility of the problem not being entirely solved by today's intervention along with the remote possibility of cardiopulmonary, septic, or hemorrhagic complications leading to were discussed, and the patient wishes to proceed. DETAILS OF PROCEDURE: The patient was taken to the operating room and placed in a supine position. After general endotracheal anesthesia was induced, he was converted to a lithotomy position and the abdomen prepped and draped. 15 cm inferior and 5 cm left of the xiphoid process, a transverse incision was made and the peritoneal cavity entered and inflated to 15 mmHg pressure with CO2. The laparoscope was reinserted. No underlying trocar insertion site injuries were seen. Following this, 4 additional trocars were placed across the upper and mid abdomen. The liver was retracted anteriorly. Some adhesions between the area of the Alejandro limb and proximal gastric pouch were then taken down with Harmonic scalpel. This then allowed delineation of the edge of the blind end of candy cane and of the Alejandro limb. Using Harmonic scalpel, the adhesions along its lateral aspect were divided up to the level of the gastrojejunostomy. This then allowed dissection behind the blind end which was then also freed of any additional adhesions. At that point, some attachments to the bypassed portion of the stomach and the area of the gastrojejunostomy were taken down as well. I divided a more direct line of firing for the CRISELDA stapler flush with the gastrojejunostomy, and once this was in place, the mesentery of the blind end of the Alejandro limb was divided with the Harmonic scalpel. This continued up to and just below the immediate gastrojejunostomy. Anesthesia then passed orally a 32-Faroese Eddie tube which came down to the gastrojejunostomy and into the main Alejandro limb. This was then placed to avoid overtightening of the gastrojejunostomy, and then the CRISELDA stapler was then used to divide the small bowel directly flush with the gastrojejunostomy and that small bowel specimen delivered from the field. With the Eddie tube still in place, the gastrojejunostomy was then reinforced, and to some extent, reconstructed using [id number] stitches of 3-0 Vicryl stitch, and at that point the Eddie tube was removed. The area was covered with some fibrin sealant and an omental patch, and at that point, no further problems were noted. A drain was felt not to be necessary. The trocars were removed, the peritoneal cavity deflated, and the incision closed with 4-0 Vicryl skin stitch. Prior to closure, bilateral transversus abdominis plane blocks had been placed, and the incisions were anesthetized with 0.5% Marcaine as well, and the patient was taken to the recovery room in satisfactory condition. Physician legal document assistant, Aubree Ferris, played an essential role in assisting in this case, helping to position the patient, retract structures as needed, as well as suturing and cutting sutures when indicated. Her presence improved the patient's safety and decreased operative time. Fredrick Mobley MD /[id number]
== END 2021-03-23 08:50 | disposition home or self-care (01) | DRG 221 ==
LOC: JP.MS 06:48 → JP.SDS 06:48 → EDSTATUS 07:15 → JP.2SS 10:00
PROVIDERS: ADMIT Surgery; ATTEND Surgery
PROC: 0DB84ZZ Excision of Small Intestine, Percutaneous Endoscopic Approach (ICD-10-PCS; principal; 2021-03-22)
DX: K95.89 Other complications of other bariatric procedure (principal); K21.9 Gastro-esophageal reflux disease without esophagitis; I10 Essential (primary) hypertension; G47.33 Obstructive sleep apnea (adult) (pediatric); M54.5 Low back pain; G89.29 Other chronic pain; K31.84 Gastroparesis; E66.9 Obesity, unspecified; Z68.31 Body mass index [BMI] 31.0-31.9, adult; Z79.899 Other long term (current) drug therapy
CPT/HCPCS: 36415; 74240; 74240-26; 82607; 82728; 82746; 88307; A9270-GY; C9113; J0171; J0330; J0694; J1100; J1644; J2185; J2405; J2704; J2710; J2795; J3010; J3411; J3490; J7120; J7121; Q9967

== ENCOUNTER 2021-04-09 08:00 | Day surgery (SDC) | payer BC ==
[~2021-04-09 08:00] MED LIST changes: -Acetaminophen 500 MG Tab PO ONE; -Bupivacaine 0.5%/EPINEPHrine 1:200,000 50 ML MDV ONE; -Celecoxib 200 MG Cap PO ONE; -Meropenem 500 MG SDV ONE; +Midazolam 1 MG/ML 2 ML SDV ONE; +Propofol 200 MG/20 ML SDV ONE; -Scopolamine 1.5 MG Transdermal Patch TOP SCH; +fentaNYL 100 MCG/2 ML SDV ONE
[2021-04-09] MEDS ORDERED: Lactated Ringers 1,000 ML IV SCH (08:15)
[2021-04-09] MEDS ORDERED: Cyanocobalamin (Vitamin B12) 1,000 MCG/ML SDV IM ONE (08:30)
[2021-04-09] MEDS ORDERED: Glycopyrrolate 0.2 MG/ML 2 ML SDV IVPUSH ONE (09:15)
[2021-04-09] MEDS ORDERED: MVI, Adult with Vitamin K 10 ML, Thiamine 200 MG, Chromium/Copper/Mang/Selen/Zn 1 ML in... IV ONE ×4 (09:15)
--- NOTE | 2021-04-15 17:44 | OR ---
DATE OF PROCEDURE: 04/09/2021 SURGEON: Fredrick Mobley MD PREOPERATIVE DIAGNOSIS: Regurgitation and recent egress of food, status post partial gastrectomy with Alejandro-en-Y reconstruction. POSTOPERATIVE DIAGNOSES: 1. Minimal stricture gastrojejunostomy with markedly dilated esophagus proximal to the gastrojejunostomy. 2. Retained foreign body (ingested food) in the esophagus. OPERATIVE PROCEDURE: Upper gastrointestinal endoscopy with: 1. Dilation of gastrojejunostomy (86748). 2. Removal of foreign body, esophagus (ingested food) (67738). ANESTHESIA: IV sedation. INDICATION FOR PROCEDURE: This is a 45-year-old male presenting with some ongoing regurgitation in spite removal of redundant candy-cane type segment of this Alejandro limb with the patient being status post previous partial gastrectomy with Alejandro-en-Y reconstruction for treatment of gastroparesis and associated reflux disease. An upper GI x-ray was obtained last week which showed markedly dilated esophagus and retained food within it. He has been maintained on a liquid diet since that time. Plan is to proceed with upper GI endoscopy with biopsies and/or dilation as indicated and removal of any retained foreign material i.e., ingested food as indicated. Potential risks including bleeding and perforation were discussed and the patient wishes to proceed. DETAILS OF PROCEDURE: The patient was taken to the operating room and placed in a left lateral decubitus position. IV sedation was administered, after which the upper GI endoscope was passed orally and into the esophagus. As expected, the esophagus was quite dilated at this point, which contained quite a bit of retained old food. Scope was manipulated around the food and through the gastrojejunostomy, which itself was basically patent with the scope easily being passed through that area. Upon gastric catheter was then centered across the anastomosis and inflated to 54 Nepali size. Positioning with this did result in some heme around the dilation site with indication of some degree of dilation. The Alejandro limb below that showed no signs of infection. The foreign body with ingested food within the distal esophagus was then manipulated into the jejunum and moved with the scope, and once this was essentially 100% cleared of the esophagus and the gastric pouch, the procedure then concluded and the patient taken to the recovery room in satisfactory condition. We will have the patient stay on a liquid diet now for few days and then try more of a low- residue diet. If he continues to have problems with regurgitation of the food overtime, the next step would be to proceed with a repeat endoscopy and placement of esophageal stent to hopefully probably complete decompression of the esophagus and improvement in his esophageal function. Overall, the patient appears to be developing somewhat of a pattern consistent with achalasia which may require periodic dilations for control. Fredrick Mobley MD /[id number]
== END 2021-04-09 11:30 | disposition home or self-care (01) ==
LOC: JP.SDS 08:00
PROVIDERS: ATTEND Surgery
DX: K91.89 Other postprocedural complications and disorders of digestive system (principal); T18.128A Food in esophagus causing other injury, initial encounter; K21.9 Gastro-esophageal reflux disease without esophagitis; G47.33 Obstructive sleep apnea (adult) (pediatric); I10 Essential (primary) hypertension; Z98.84 Bariatric surgery status
CPT/HCPCS: 43245; 43247; J2250; J2704; J3010; J3411; J3420; J3490; J7120

== ENCOUNTER 2021-07-09 08:15 | Day surgery (SDC) | payer BC ==
[~2021-07-09 08:15] MED LIST changes: +Lactated Ringers 1,000 ML IV ONE
[2021-07-09] MEDS ORDERED: Lactated Ringers 1,000 ML IV ONE (08:45)
[2021-07-09] MEDS ORDERED: Cyanocobalamin (Vitamin B12) 1,000 MCG/ML SDV IM ONE (09:00)
[2021-07-09] MEDS ORDERED: Glycopyrrolate 0.2 MG/ML 2 ML SDV IVPUSH ONE (09:15)
[2021-07-09] MEDS ORDERED: MVI, Adult with Vitamin K 10 ML, Thiamine 200 MG, Chromium/Copper/Mang/Selen/Zn 1 ML in... IV ONE ×4 (10:00)
--- NOTE | 2021-07-12 07:46 | OR ---
DATE OF PROCEDURE: 07/09/2021 SURGEON: Fredrick Mobley MD PREOPERATIVE DIAGNOSIS: Increasing dysphagia. POSTOPERATIVE DIAGNOSIS: Widely open esophageal jejunostomy with large amount of retained liquid and solid food within the esophagus consistent with esophageal dysmotility. OPERATIVE PROCEDURE: Upper gastrointestinal endoscopy with dilation of esophagojejunostomy (52521). ANESTHESIA: IV sedation. INDICATION FOR PROCEDURE: This is a 46-year-old male presenting with some worsening dysphagia. He is status post esophagojejunostomy with this being done for worsening heartburn symptoms and associated gastroparesis. Recently, he was noted to have some retained food within the esophagus, which was also noted preoperatively, and this was improved quite a bit on a combination of Zithromax and Reglan. He had gone off those medications and now was having worsening symptoms once again. He did restart the Zithromax at 125 mg a day recently. With the patient continuing to have significant symptoms of retained food within the esophagus, plan is to proceed with upper GI endoscopy with dilation as indicated. Potential risks of the procedure including bleeding and perforation were discussed, and the patient wishes to proceed. DETAILS OF PROCEDURE: The patient was taken to the operating room and placed in a left lateral decubitus position. IV sedation was administered, after which the upper GI endoscope was passed orally through the length of the esophagus and through the esophagojejunostomy and roughly 20 cm into the Alejandro limb. The findings were quite striking amount of retained liquid and solid food within the esophagus. This was associated with some esophageal dilation of the esophagojejunostomy; however, it was widely patent with the scope easily being passed through that area, and beyond that, there was no retained food within the jejunum other than some that had likely been pushed in by means of the passage of the scope. At this point, the esophagojejunostomy was dilated with a 54-German balloon dilator. This resulted in a very minimal change if any in the diameter. No complications were noted, and the procedure then concluded. At this point, we will increase his Zithromax to 250 mg a day and instruct him to eat more of a liquid diet and then remain in a sitting position or upright position for at least 1 hour after eating, hopefully allowing some of this to pass by gravity, and he will be following up with Aubree Ferris in roughly 2 weeks. If this current regimen fails to improve things, we would need to consider a gastroenterology referral. One additional finding on this patient is recent quite low vitamin A levels, being 22.1 mcg per dL, with normal low lower range being 32.5. Given this, he will be started on vitamin A 100,000 units orally, #30, and again, he will be following up with Aubree Ferris in [facility] in roughly 2 weeks. Fredrick Mobley MD /[id number]
== END 2021-07-09 12:00 | disposition home or self-care (01) ==
LOC: JP.SDS 08:15
PROVIDERS: ATTEND Surgery
DX: K91.89 Other postprocedural complications and disorders of digestive system (principal); R13.10 Dysphagia, unspecified; G47.33 Obstructive sleep apnea (adult) (pediatric); I10 Essential (primary) hypertension; K21.9 Gastro-esophageal reflux disease without esophagitis; F17.200 Nicotine dependence, unspecified, uncomplicated
CPT/HCPCS: 43249; C1726; J2250; J2704; J3010; J3411; J3420; J3490; J7120

== ENCOUNTER 2024-04-28 09:05 | Day surgery (SDC) | payer BC, OTHER ==
[2024-04-28] MEDS: Lactated Ringers 1,000 ML IV ONE (09:28)
[2024-04-28] MEDS ORDERED: fentaNYL 50 MCG/ML SDV ONE (09:30)
[2024-04-28] MEDS ORDERED: Midazolam 1 MG/ML 2 ML SDV ONE (09:32)
[2024-04-28] MEDS ORDERED: Propofol 200 MG/20 ML SDV ONE (09:32)
[2024-04-28] MEDS: Cyanocobalamin (Vitamin B12) 1,000 MCG/ML SDV IM ONE (09:46)
[2024-04-28] MEDS: MVI, Adult with Vitamin K 10 ML, Thiamine 200 MG, Zinc/Copper/Manganese/Selenium 1 ML i... IV ONE (10:31)
== END 2024-04-28 13:05 | disposition home or self-care (01) ==
LOC: JP.SDS 09:05
PROVIDERS: ATTEND Surgery
DX: R13.10 Dysphagia, unspecified (principal); K21.9 Gastro-esophageal reflux disease without esophagitis; G47.33 Obstructive sleep apnea (adult) (pediatric); I10 Essential (primary) hypertension
CPT/HCPCS: 88305; C1726; J2250; J2704; J3010; J3411; J3420; J3490; J7120